=== PATIENT | female | born 1970 | race Caucasian/White ===

== ENCOUNTER → 2021-11-23 13:37 | Outpatient (BNVA) | payer SELFPAY | PROVIDERS: Visit Provider Nurse Practitioner | DX: N39.0 Urinary tract infection, site not specified (principal); R39.9 Unspecified symptoms and signs involving the genitourinary system | CPT/HCPCS: 81000 ==

== ENCOUNTER 2022-12-01 13:34 | Outpatient (CLI) | payer OTHER, SELFPAY ==
--- NOTE | 2022-12-01 13:42 | MM_ITS ---
WS: [id number] BILATERAL 3D TOMOSYNTHESIS DIGITAL SCREENING MAMMOGRAPHY WITH CAD CLINICAL INFORMATION: SCREENING HISTORY: Screening mammogram. No current complaints. COMPARISON: None. TECHNIQUE: Bilateral CC and MLO views. FINDINGS: Scattered fibroglandular densities bilaterally. No suspicious focal mass, asymmetry, calcifications, or architectural distortion. No evidence of malignancy. A few tiny incidental punctate calcifications . IMPRESSION: MM/[place] [id number] BI-RADS: 2-Benign FOLLOW UP: 1 Year Follow-up Recommend return to annual screening mammography.
== END 2022-12-01 13:35 | disposition home or self-care (01) ==
PROVIDERS: PCP Nurse Practitioner; Visit Provider Nurse Practitioner
DX: Z12.31 Encounter for screening mammogram for malignant neoplasm of breast (principal)
CPT/HCPCS: 77063; 77067

== ENCOUNTER → 2023-05-27 09:43 | Outpatient (BNVA) | payer OTHER, SELFPAY | PROVIDERS: PCP Nurse Practitioner; Visit Provider Podiatrist Foot & Ankle Surgery | DX: M21.612 Bunion of left foot; M21.611 Bunion of right foot; M20.12 Hallux valgus (acquired), left foot; M20.11 Hallux valgus (acquired), right foot; M20.41 Other hammer toe(s) (acquired), right foot; M20.42 Other hammer toe(s) (acquired), left foot; M79.672 Pain in left foot; M79.671 Pain in right foot | CPT/HCPCS: 73630; 99203 ==

== ENCOUNTER → 2023-06-28 15:13 | Outpatient (BNVA) | payer OTHER, SELFPAY | PROVIDERS: PCP Nurse Practitioner; Referring Provider Nurse Practitioner; Visit Provider Internal Medicine Pulmonary Disease | DX: J98.11 Atelectasis (principal); J45.909 Unspecified asthma, uncomplicated | CPT/HCPCS: 36415; 82785; 85025; 86003; 99204 ==

== ENCOUNTER → 2023-08-10 14:59 | Outpatient (BNVA) | payer OTHER, SELFPAY | PROVIDERS: PCP Nurse Practitioner; Visit Provider Internal Medicine Pulmonary Disease | DX: J98.11 Atelectasis (principal); J47.9 Bronchiectasis, uncomplicated; J82.83 Eosinophilic asthma | CPT/HCPCS: 36415; 82784; 99214 ==

== ENCOUNTER 2023-08-17 09:08 | Day surgery (SDC) | payer OTHER, SELFPAY ==
[2023-08-17] VITALS (9 sets, daily range): BP systolic 119–140; BP diastolic 75–93; PULSE 76–91; RESP 13–22; TEMP 36.1–36.4; O2SAT 93–97; BMI 36.7
[2023-08-17] MEDS: sodium chloride 0.9% 1,000 ML 30 ML IV (09:39)
--- NOTE | 2023-08-17 10:10 | ANES.PREANE2 ---
Pre-Anesthetic Assessment Height/Weight: Height 1.63 m Weight 97.069 kg Temp Pulse Resp BP Pulse Ox O2 Del Method 97 F L 82 16 119/78 96 Room Air 08/17/23 09:25 08/17/23 09:25 08/17/23 09:25 08/17/23 09:25 08/17/23 09:25 08/17/23 09:25 Preop Diagnosis: Sputum Culture needed to rule out infection Operation Date: 08/17/23 10:10 Proposed Procedures p Bronchoalveolar Lavage 20524, 70866, 94980, 35675, 90388, 20928, 79387, 09236, 29960, J47.9(Not Applicable) - Karan Bahena DatarMD Familial anesthetic complications: none Was Beta Chase taken within 24 hours: N/A Was Clonidine taken within 24 hours: N/A Last intake: Intake Last Liquid Date 08/16/23 Last Liquid Time 23:45 Last Solid Date 08/16/23 Last Solid Time 23:45 Social No alcohol and No tobacco Exam alert, oriented x 3, clear to auscultation bilaterally (diminished breath sounds on the left upper lobe otherwise clear.) and No regular rate & rhythm Airway Submandibular: within normal limits Cervical ROM: Other (left sided stiffness) Mallampati: Class II Dentition: full Pulmonary Asthma, Shortness of Breath and Upper Respiratory Infection (sputum sample needed to rule out lung infection, patient states left lobe of lung collapsed.) CV/HEM Arrythmia (SVT ablation 2003) and Palpitations patient states that she feels rare episodes of increased heart rate but does not feel symptomatic from it. None reported Hepatic None reported GI Gastroesophageal Reflux Disease poorly controlled. Sleeps elevated. Metabolic Hyperlipidemia and Morbid Obesity [facility] None reported Neuropsych None reported Anesthetic Plan ASA status: 3 Anesthesia: General Medications/Allergies Home Medications Medication Instructions Recorded Confirmed Last Taken Type Low Profile Custom Insoles #4 ea 05/27/23 08/12/23 Unknown Rx diclofenac sodium 1 % topical gel 2 g topical QID 05/27/23 08/12/23 2 Weeks Ago History (Voltaren Arthritis Pain) ~07/29/23 meloxicam 15 mg tablet 15 mg PO DAILY #30 tabs 05/27/23 08/12/23 08/16/23 Rx albuterol sulfate 90 mcg/actuation 1 inh inhalation QID PRN shortness 06/28/23 08/12/23 15 Years Ago Rx aerosol inhaler (Ventolin HFA) of breath or wheezing #8.5 grams ~08/11/08 fluticasone 100 mcg-salmeterol 50 1 inh inhalation BID #60 ea 06/28/23 08/12/23 08/16/23 Rx mcg/dose blistr powdr for inhalation (Wixela Inhub) rizatriptan 10 mg tablet 10 mg PO Q2H PRN Migraine Headache 06/28/23 08/12/23 08/07/23 History topiramate 25 mg sprinkle capsule 50 mg PO DAILY 06/28/23 08/12/23 08/12/23 History Acapella #1 ea 08/10/23 08/12/23 Unknown Rx guaifenesin 600 mg tablet, 600 mg PO Q12H PRN congestion #60 08/10/23 08/12/23 5 Days Ago Rx extended release 12 hr tabs ~08/07/23 montelukast 10 mg tablet 10 mg PO DAILY 08/12/23 08/12/23 08/16/23 History Allergies Allergy/AdvReac Type Severity Reaction Status Date / Time latex Allergy ALGY-Hives Verified 08/12/23 14:19 Current Medications Generic Name Dose Route Start Last Admin Trade Name Freq PRN Reason Stop Dose Admin Sodium Chloride 1,000 mls @ 30 mls/hr 08/17/23 09:15 08/17/23 09:39 Sodium Chloride 0.9% IV 08/18/23 09:14 30 mls/hr .Q24H TERESA Administration PFSH Anesthesia Social History Smoking and tobacco/nicotine status: never used tobacco/nicotine Data Anesthesia Cardiac Studies: No Data to Display
--- NOTE | 2023-08-17 10:36 | W.PM.OPSUD ---
Surgery/Procedure H&P Update DATE OF PROCEDURE: August 17, 2023 DATE H&P PERFORMED: 08/10/23 H&P UPDATE INFORMATION: I have reviewed H&P completed within last 30 days, I have examined patient prior to procedure and No changes to prior documentation CHANGES TO PREVIOUS DOCUMENTATION: none PREOP DIAGNOSIS: Sputum Culture needed to rule out infection PRIMARY INDICATION FOR PROCEDURE: pt has bronchiectasis in left lower lung zone and history of chronic bronchitis for several years- I ordered sputum cultures/mycobacterial cultures to rule out MAC leading to chronic pulmonary infection but she could not bring up sputum. so we will schedule bronchoscopy for a BAL on august 17 2023. PLANNED PROCEDURE: Operation Date: 08/17/23 10:10 Proposed Procedures p Bronchoalveolar Lavage 19804, 10491, 98526, 78774, 32759, 18353, 82997, 48610, 72513, J47.9(Not Applicable) - Karan Bahena DatarMD
[2023-08-17] MEDS: lidocaine 1% INJ 10 mL (per mL) XX (11:00)
--- NOTE | 2023-08-17 11:08 | PM.OP ---
Operative Report Date of procedure: August 17, 2023 Pre-op diagnosis: Left lower lobe bronchiectasis and atelectasis-rule out MAC Post-op diagnosis: Same Procedure done: Dx Bronchoscope w/Washings or airway inspection Dx Bronchoscope w/BAL Bronchoscopy w/ therapeutic aspiration of the tracheobronchial tree (clearance of airway secretions, removal of mucus plugs) Surgeon: Karan Frederick MD Brief History: Ms. Lo Salter is a 53-year-old female with past medical history of asthma, allergic rhinitis, endometriosis, low back pain referred by Ms. Kasey Hill for solitary pulmonary nodule. Patient initially had a routine chest x-ray as part of physical exam-which showed well-defined consolidative process with associated atelectasis left lung base. A follow-up CT chest in December 2022 which showed atelectasis versus scarring anterior left lung base, small pulmonary nodule versus portion pulmonary vessel posterior right mid to lower lung field. CT chest February 2023 very small density posterior aspect of right lower midlung is unchanged compared to December 2022. Very mild atelectasis in the right lung base. Multiple new very small areas of pleural-based density in posterior aspect of right lower and lower mid lung which may represent atelectasis. Density in the left lung base which is increased suggesting increased atelectasis or infiltrate. Another 2-month follow-up CT chest 05/10/2023: Which showed multiple very small pleural-based densities in posterior aspect of right lower and lower mid lung which is decreased compared to March 01, 2023 which may indicate interval improvement of inflammation or interval improvement of very mild atelectasis or infiltrate adjacent to the pleura. There are scattered density in the left lung which is decreased suggesting interval improvement of atelectasis or infiltrate which may be superimposed on scarring. There is very small density in the posterior aspect of the right lower midlung which is unchanged. Today scheduled for airway inspection, therapeutic aspiration of mucous plugs, obtaining BAL to rule out MAC for left lower lobe bronchiectasis Procedure: Dx Bronchoscope w/Washings or airway inspection Dx Bronchoscope w/BAL Bronchoscopy w/ therapeutic aspiration of the tracheobronchial tree (clearance of airway secretions, removal of mucus plugs) Pre-Operative Diagnosis: Left lower lung bronchiectasis-rule out MAC Post-Operative Diagnosis: Same Indication: Atelectasis left lung base; bronchiectasis rule out MAC Consent: Consents were obtained from patient and placed in the chart Pre-procedure Evaluation: Patient was evaluated clinically and ancillary testing reviewed. The risk of having active MTB infection is very low in my clinical judgement. ASA: 3 Time out: Performed by the procedure team and nursing staff. Vent support maintained on Fio2 100. Anesthesia: General anesthesia by anesthesia team. A laryngeal mask airway was placed for ventilatory support Local anesthesia: The rosalie in the right and left mainstem bronchi were anesthetized with 1% lidocaine, 6 mL. Summary of Significant Findings: -Bronchoscope passed through ET tube used for initial inspection and airway clearance. The scope was advanced through the ET tube. The lower trachea mucosa appeared normal, no endotracheal lesion was seen. The rosalie was sharp. The rosalie, the right and left mainstem bronchi are anesthetized with 1% lidocaine. The bronchoscope was then introduced into the right mainstem bronchus. The right upper lobe, right middle lobe and right lower lobe bronchi were examined up to the third subsegmental level and no abnormalities were identified. The mucosa appeared normal with no endobronchial lesions, active bleeding. There were clear secretions in all airways which were suctioned right away. There is no evidence of active bleeding. In a systematic manner bilateral bronchial tree was then examined. The bronchoscope was advanced into the left mainstem bronchus. The mucosa appeared normal with no endobronchial lesions. The left upper lobe, lingula and left lower lobe bronchi were examined up to the third subsegmental level and no abnormalities were identified. Mucosa appeared normal with no endobronchial lesion. There were some clear secretions in left lower lobe-which were suctioned right away. There is no evidence of active bleeding. The bronchoscope was wedged at the entrance of lateral basal segment of left lower lobe-instilled 50 cc normal saline and aspirated 12 cc bronchoalveolar lavage. Bronchoscope was then removed and the procedure terminated. Estimated Blood Loss: None Specimens: Bronchoalveolar lavage from left lower lobe sent for cultures, fluid analysis, mycobacterial cultures Complications:None; patient tolerated the procedure well. Disposition: Patient will discharged home. Surgeon: Karan Frederick MD, [facility] Pulmonary critical Care Medicine [facility] Related Problem List Diagnoses (1) Atelectasis: (2) Bronchiectasis:
[2023-08-17 12:14] LABS: Cyto Order Verification Order Verified
--- NOTE | 2023-08-17 12:15 | ANE.PACU2 ---
Inpatient post-anesthesia follow up: Airway intact: Yes Vital signs: Temperature 97.6 F Pulse Rate 81 Respiratory Rate 18 Blood Pressure 140/93 Pulse Oximetry 95 Oxygen Delivery Me thod Room Air Oxygen Flow Rate Fraction of Inspir ed Oxygen Hydration adequate: Yes Nausea and vomiting: No Pain level: 1 Mental status: Baseline
[2023-08-17 12:41] LABS: Apprearance, Bronch Wash Hazy (CLEAR); Color, Bronc Wash Slight Pink; Total Cells Counted Bronch 200
[2023-08-17 12:42] LABS: Bronch Source LEFT LOWER LOBE BAL; PATH Referral Yes
== END 2023-08-17 12:15 | disposition home or self-care (01) ==
PROVIDERS: PCP Nurse Practitioner; Visit Provider Internal Medicine Pulmonary Disease
PROC: (CPT 31624; principal; 2023-08-17 10:00)
DX: R91.8 Other nonspecific abnormal finding of lung field (principal); J47.9 Bronchiectasis, uncomplicated; J98.11 Atelectasis; J45.909 Unspecified asthma, uncomplicated; K21.9 Gastro-esophageal reflux disease without esophagitis; E78.5 Hyperlipidemia, unspecified
CPT/HCPCS: 31624; 31645; 80503; 87015; 87070; 87077; 87116; 87186; 87205; 87206; 87801; 88112; 89050; J0330; J2704; J7030

== ENCOUNTER → 2023-11-01 14:50 | Outpatient (BNVA) | payer OTHER, SELFPAY | PROVIDERS: PCP Nurse Practitioner; Visit Provider Specialist | DX: M17.12 Unilateral primary osteoarthritis, left knee (principal) | CPT/HCPCS: 73560; 73565 ==

== ENCOUNTER 2023-11-10 10:54 | Outpatient (CLI) | payer OTHER, SELFPAY ==
--- NOTE | 2023-11-10 11:02 | CT_ITS ---
WS: [id number] CT chest wo/w con [id number] HISTORY: LUNG NODULE TECHNIQUE: Axial imaging performed through the thorax. Coronal and sagittal reformats are submitted. Pre and postcontrast imaging. All CT scans at [facility] use at least one of these dose optimi zation techniques: automated exposure control; mA and/or kV adjustment per patient size (includes tar geted exams where dose is matched to clinical indication); or iterative reconstruction. CONTRAST: Omnipaque 350; 100 mL IV. DLP: 1049.58 mGy.cm COMPARISON: 03/01/2023, 12/14/2022 Lungs and central airway: Improved aeration as compared to prior imaging studies. No new or enlarging pulmonary nodules. Subsegmental atelectasis LEFT lower lobe. There is no pneumonia. Pleura: Normal. No pleural effusion. Heart and pericardium: Normal size heart with no pericardial effusion. Mediastinum and karen: No mediastinum or hilar adenopathy. Vessels: Normal size aortic and pulmonary artery. No coronary artery calcifications. Chest wall and lower neck: No soft tissue masses. Upper abdomen: Small hiatal hernia. Hepatic steatosis. Normal portal vein. No adrenal mass. Osseous structures: No destructive process. CT/CT chest wo/w con [id number] IMPRESSION: 1. No suspicious pulmonary nodules or masses. No pneumonia. 2. Subsegmental linear atelectasis or scarring in the LEFT lower lobe. 3. No mediastinal or hilar adenopathy.
[2023-11-10] MEDS: iohexol 350 mg/mL 500 mL Btl (per mL) IV (11:48)
== END 2023-11-10 10:55 | disposition home or self-care (01) ==
LOC: RAD 10:55
PROVIDERS: PCP Nurse Practitioner; Visit Provider Nurse Practitioner
DX: J98.11 Atelectasis (principal); K44.9 Diaphragmatic hernia without obstruction or gangrene; K76.0 Fatty (change of) liver, not elsewhere classified
CPT/HCPCS: 71270; Q9967

== ENCOUNTER → 2023-11-16 13:15 | Outpatient (BNVA) | payer OTHER, SELFPAY | PROVIDERS: PCP Nurse Practitioner; Visit Provider Podiatrist Foot & Ankle Surgery | DX: M20.10 Hallux valgus (acquired), unspecified foot (principal); M20.41 Other hammer toe(s) (acquired), right foot; M20.42 Other hammer toe(s) (acquired), left foot; L60.3 Nail dystrophy; M21.611 Bunion of right foot; M21.612 Bunion of left foot | CPT/HCPCS: 99213 ==

== ENCOUNTER → 2023-12-21 15:58 | Outpatient (BNVA) | payer OTHER, SELFPAY | PROVIDERS: PCP Nurse Practitioner; Visit Provider Podiatrist Foot & Ankle Surgery | DX: B35.1 Tinea unguium (principal) | CPT/HCPCS: 36415; 80053 ==

== ENCOUNTER 2023-12-28 13:45 | Outpatient (CLI) | payer OTHER, SELFPAY ==
--- NOTE | 2023-12-28 13:45 | MR_ITS ---
WS: [id number] MRI LEFT KNEE NONCONTRAST TECHNIQUE: Axial PD, coronal PD fat sat, coronal PD, sagittal PD, and sagittal PD fat-sat images obta ined. CLINICAL INFORMATION: left knee pain COMPARISON: None. FINDINGS: Distal quadriceps and patella tendons are intact. Hypertrophic patella. Prior repair of the ACL with tibial tunnel. ACL graft appears intact. Normal PCL. Grade II chondromalacia patella. Normal medial a nd lateral collateral ligaments. Tiny popliteal cyst measuring 8 mm. Chronic thinning of the medial and lateral meniscus. Chronic intrasubstance signal normality involvin g the lateral meniscus. Peripheral extrusion of the lateral meniscus. Medial meniscus appears intact. Fibula head appears normal. Normal bone marrow signal in the medial and lateral tibial plateau. MR/MR knee LT wo con* [id number] IMPRESSION: 1. Evidence of prior ACL repair. ACL graft appears intact. Normal PCL. 2. Grade II chondromalacia patella. Trace suprapatellar effusion. 3. Peripheral extrusion of the lateral meniscus with chronic intrasubstance si gnal abnormality. Medial meniscus appears intact with chronic thinning. 4. Medial and lateral collateral ligaments appear intact. 5. Tiny 8 mm popliteal cyst. 6. Mild to moderate tricompartmental degenerative arthritis Outbridge grading:
== END 2023-12-28 13:53 | disposition home or self-care (01) ==
PROVIDERS: PCP Nurse Practitioner; Visit Provider Specialist
DX: M23.201 Derangement of unspecified lateral meniscus due to old tear or injury, left knee (principal); M17.12 Unilateral primary osteoarthritis, left knee; M22.42 Chondromalacia patellae, left knee
CPT/HCPCS: 73721

== ENCOUNTER → 2024-01-12 14:03 | Outpatient (BNVA) | payer OTHER, SELFPAY | PROVIDERS: PCP Nurse Practitioner; Referring Provider Nurse Practitioner; Visit Provider Nurse Practitioner Family | DX: L91.8 Other hypertrophic disorders of the skin (principal); L70.0 Acne vulgaris; L30.8 Other specified dermatitis; L98.8 Other specified disorders of the skin and subcutaneous tissue; D23.71 Other benign neoplasm of skin of right lower limb, including hip; D18.01 Hemangioma of skin and subcutaneous tissue; Z80.8 Family history of malignant neoplasm of other organs or systems | CPT/HCPCS: 17110; 99204 ==

== ENCOUNTER → 2024-01-24 15:30 | Outpatient (BNVA) | payer OTHER, SELFPAY | PROVIDERS: PCP Nurse Practitioner; Visit Provider Specialist | DX: M25.562 Pain in left knee (principal); M17.12 Unilateral primary osteoarthritis, left knee | CPT/HCPCS: 20610; 99215 ==

== ENCOUNTER 2024-01-25 13:00 | Outpatient (CLI) | payer OTHER, SELFPAY ==
--- NOTE | 2024-01-25 13:01 | MM_ITS ---
WS: [id number] BILATERAL 3D TOMOSYNTHESIS DIGITAL SCREENING MAMMOGRAPHY WITH CAD CLINICAL INFORMATION: SCREENING HISTORY: Screening mammogram. No current complaints. COMPARISON: 2022 TECHNIQUE: Bilateral CC and MLO views. FINDINGS: Scattered fibroglandular densities bilaterally. No suspicious focal mass, asymmetry, calcifications, or architectural distortion. No evidence of malignancy. A few incidental punctate calcifications. MM/MM scr tomosynthesis [id number] IMPRESSION: DENSITY: There are scattered areas of fibroglandular density. BI-RADS: 2 - Benign. FOLLOW UP: 1 Year Follow-up Recommend return to annual screening mammography.
== END 2024-01-25 13:01 | disposition home or self-care (01) ==
PROVIDERS: PCP Nurse Practitioner; Visit Provider Nurse Practitioner
DX: Z12.31 Encounter for screening mammogram for malignant neoplasm of breast (principal); R92.323 Mammographic fibroglandular density, bilateral breasts
CPT/HCPCS: 77063; 77067

== ENCOUNTER → 2024-02-01 15:05 | Outpatient (BNVA) | payer OTHER, SELFPAY | PROVIDERS: PCP Nurse Practitioner; Visit Provider Podiatrist Foot & Ankle Surgery | DX: B35.1 Tinea unguium (principal) | CPT/HCPCS: 36415; 80053 ==

== ENCOUNTER → 2024-05-15 14:44 | Outpatient (BNVA) | payer OTHER, SELFPAY | PROVIDERS: PCP Nurse Practitioner; Visit Provider Nurse Practitioner Family | DX: L70.0 Acne vulgaris (principal); L30.8 Other specified dermatitis; L60.8 Other nail disorders | CPT/HCPCS: 99214 ==

== ENCOUNTER → 2024-07-18 13:23 | Outpatient (BNVA) | payer OTHER, SELFPAY | PROVIDERS: PCP Nurse Practitioner; Visit Provider Podiatrist Foot & Ankle Surgery | DX: M20.41 Other hammer toe(s) (acquired), right foot (principal); M20.42 Other hammer toe(s) (acquired), left foot; B35.1 Tinea unguium; M20.12 Hallux valgus (acquired), left foot; M20.11 Hallux valgus (acquired), right foot; M21.611 Bunion of right foot; M21.612 Bunion of left foot | CPT/HCPCS: 99213 ==

== ENCOUNTER → 2024-11-15 14:33 | Outpatient (BNVA) | payer OTHER, SELFPAY | PROVIDERS: PCP Nurse Practitioner; Visit Provider Nurse Practitioner Family | DX: L70.0 Acne vulgaris (principal); L30.8 Other specified dermatitis; D18.01 Hemangioma of skin and subcutaneous tissue; L60.8 Other nail disorders; Z80.8 Family history of malignant neoplasm of other organs or systems | CPT/HCPCS: 99214 ==